=== PATIENT | male | born 1965 | race Caucasian/White ===

== ENCOUNTER 2021-10-31 21:03 | Emergency (ER) | payer OTHER ==
[2021-10-31] MEDS ORDERED: Sodium Chloride 0.9% 1,000 ML IV SCH (22:00)
== END 2021-10-31 23:35 | disposition home or self-care (01) ==
LOC: JD.ED 21:03
DX: N13.2 Hydronephrosis with renal and ureteral calculous obstruction (principal); Z86.16 Personal history of COVID-19; Z90.49 Acquired absence of other specified parts of digestive tract
CPT/HCPCS: 36415; 74176; 80053; 81001; 85007; 85027; 87086; 87088; 87186; 96360; 96361; 99284; J7030; 99283